=== PATIENT | female | born 1935 | race Asian ===

== ENCOUNTER 2016-07-21 09:12 | Day surgery (SDC) | payer MEDICARE, MEDICAID ==
[~2016-07-21] VITALS: Ht 162.6 cm; Wt 63.6 kg
[2016-07-21 09:57] VITALS: BP 190/95
[2016-07-21] MEDS ORDERED: ASPIRIN 325 MG TABLET EC PO ONE (10:00)
[2016-07-21] MEDS ORDERED: ZOLPIDEM 5MG TABLET PO PRN (10:00)
[2016-07-21] MEDS ORDERED: ONDANSETRON 2MG/ML, 2ML IVPush PRN (10:00)
[2016-07-21] MEDS ORDERED: BISACODYL 5 MG EC TABLET PO PRN (10:00)
[2016-07-21] MEDS ORDERED: BISACODYL 10 MG SUPP PR PRN (10:00)
[2016-07-21] MEDS ORDERED: ACETAMINOPHEN 325 MG TABLET PO PRN (10:00)
[2016-07-21] MEDS ORDERED: OMEP-110 PO (10:15)
[2016-07-21] MEDS ORDERED: ASPI-515 PO (10:15)
[2016-07-21] MEDS ORDERED: FENO145T13 PO (10:15)
[2016-07-21] MEDS ORDERED: ATOR10TA PO (10:15)
[2016-07-21] MEDS ORDERED: AMLO2.5T PO (10:15)
[2016-07-21] MEDS ORDERED: HYDR12.58 PO (10:15)
[2016-07-21] MEDS ORDERED: CETI10TA18 PO (10:15)
[2016-07-21] MEDS ORDERED: METO25TA35 PO (10:15)
[2016-07-21] MEDS ORDERED: ASPIRIN 325 MG TABLET EC ONE (10:18)
[2016-07-21 10:34] LABS: HEMOGLOBIN 15.8 g/dL (11.7-16.4)
[2016-07-21 10:41] LABS: ASPARTATE AMINO TRANSFERASE 24 U/L (15-37); BLOOD UREA NITROGEN 15 mg/dL (7-18)
[2016-07-21] MEDS ORDERED: MIDAZOLAM 1 MG/ML, 5ML ONE (11:52)
[2016-07-21] MEDS ORDERED: FENTANYL PF 100 MCG/2ML ONE (11:52)
[2016-07-21] MEDS ORDERED: LIDOCAINE 2%, 20ML ONE (11:53)
[2016-07-21] MEDS ORDERED: METOPROLOL TARTRATE 25 MG TABLET PO STA (12:59)
[2016-07-21] MEDS ORDERED: AMLODIPINE 2.5 MG TABLET PO STA (12:59)
[2016-07-21] MEDS ORDERED: HYDROCHLOROTHIAZIDE 12.5 MG CAPSULE PO STA (12:59)
== END 2016-07-21 15:41 | disposition home or self-care (01) ==
LOC: CACL 09:12
PROVIDERS: ATTEND Internal Medicine Cardiovascular Disease
DX: R93.1 Abnormal findings on diagnostic imaging of heart and coronary circulation (principal); I10 Essential (primary) hypertension; E78.5 Hyperlipidemia, unspecified; Z82.49 Family history of ischemic heart disease and other diseases of the circulatory system; Z80.9 Family history of malignant neoplasm, unspecified; Z79.01 Long term (current) use of anticoagulants
CPT/HCPCS: 36415; 71020; 80053; 80061; 85025; 85610; 85730; 93005; 93458; C1760; C1894; J2250; J3010; J3490; Q9967